=== PATIENT | female | born 1970 | race Caucasian/White ===

== ENCOUNTER → 2020-02-13 | Outpatient (CLI) | payer OTHER ==
[~2020-02-13] MED LIST: AZITHROMYCIN PO; NO HOME MEDICATION.; NORCO 5-325 TA1 EACH PO; ZOFRAN4 MG PO
== END ==
LOC: M.LAB 09:43
PROVIDERS: ATTEND Podiatrist Foot & Ankle Surgery
DX: Z01.812 Encounter for preprocedural laboratory examination (principal)

== ENCOUNTER → 2020-03-05 | Outpatient (CLI) | payer OTHER | LOC: M.LAB 09:51 | PROVIDERS: ATTEND Podiatrist Foot & Ankle Surgery | DX: Z01.812 Encounter for preprocedural laboratory examination (principal) ==